=== PATIENT | female | born 1985 | race Caucasian/White ===

== ENCOUNTER 2024-05-27 11:10 | Outpatient (CLI) | payer OTHER, SELFPAY | END 2024-05-27 11:11 | disposition home or self-care (01) | PROVIDERS: PCP Emergency Medicine; Visit Provider Emergency Medicine | DX: E78.49 Other hyperlipidemia (principal); Z13.228 Encounter for screening for other metabolic disorders | CPT/HCPCS: 80053; 80061 ==

== ENCOUNTER 2024-07-01 09:19 | Outpatient (CLI) | payer OTHER, SELFPAY | END 2024-07-01 09:20 | disposition home or self-care (01) | PROVIDERS: PCP Emergency Medicine; Visit Provider Emergency Medicine | DX: R63.5 Abnormal weight gain (principal); E78.5 Hyperlipidemia, unspecified | CPT/HCPCS: 84443; 87624; 87625; 88141; 88142 ==

== ENCOUNTER 2024-07-22 09:54 | Outpatient (CLI) | payer OTHER, SELFPAY ==
[2024-07-24 14:47] LABS: HPV Source Cervix; HPV, High Risk by TMA Not Detected
== END 2024-07-22 09:55 | disposition home or self-care (01) ==
PROVIDERS: PCP Emergency Medicine; Visit Provider Obstetrics & Gynecology
DX: Z12.4 Encounter for screening for malignant neoplasm of cervix (principal); Z11.51 Encounter for screening for human papillomavirus (HPV)
CPT/HCPCS: 87624; 87625; 88141; 88142

== ENCOUNTER 2025-09-03 10:58 | Outpatient (CLI) | payer BC, SELFPAY | END 2025-09-03 10:59 | disposition home or self-care (01) | PROVIDERS: PCP Physician Assistant Medical; Visit Provider Physician Assistant Medical | DX: Z00.00 Encounter for general adult medical examination without abnormal findings (principal); Z11.3 Encounter for screening for infections with a predominantly sexual mode of transmission | CPT/HCPCS: 80053; 86703; 86706; 86780; 86803; 87340 ==

== ENCOUNTER 2025-09-14 07:16 | Outpatient (CLI) | payer BC, SELFPAY ==
--- NOTE | 2025-09-14 08:18 | P.ANES_ITS ---
Anesthesia Charges Start Date/Time Anesthesia Start Date: 09/14/25 Anesthesia Start Time: 07:54 Stop Date/Time Anesthesia Stop Date: 09/14/25 Anesthesia Stop Time: 08:15 Coding CPT Codes CPT Codes: ANES UPR GI NDSC PX NOS - 99303 ([id number]) P3 - PATIENT W/SEVERE SYS DISEASE, QX - GAS REVERSER SVC W/ MD MED DIRECTION, QK - CANCELING AND CUTTING CONTROL CLERK 2-4 CNCRNT ANES PROC
--- NOTE | 2025-09-14 08:18 | W.ANESCHARGE ---
Anesthesia Charges Start Date/Time Anesthesia Start Date: 09/14/25 Anesthesia Start Time: 07:54 Stop Date/Time Anesthesia Stop Date: 09/14/25 Anesthesia Stop Time: 08:15 Coding CPT Codes CPT Codes: ANES UPR GI NDSC PX NOS - 59858 ([id number]) P3 - PATIENT W/SEVERE SYS DISEASE, QX - ENVIRONMENTAL WEB CRAWLER SVC W/ MD MED DIRECTION, QK - CLERICAL ADJUSTER 2-4 CNCRNT ANES PROC
--- NOTE | 2025-09-14 09:27 | P.ANES_ITS ---
Anesthesia Charges Start Date/Time Anesthesia Start Date: 09/14/25 Anesthesia Start Time: 07:54 Stop Date/Time Anesthesia Stop Date: 09/14/25 Anesthesia Stop Time: 08:15 Coding CPT Codes CPT Codes: ANES UPR GI NDSC PX NOS - 72646 ([id number]) QK - GRADES 7 8 TUTOR 2-4 CNCRNT ANES PROC, QX - FOOD INSPECTOR SVC W/ MD MED DIRECTION, P3 - PATIENT W/SEVERE SYS DISEASE
--- NOTE | 2025-09-14 09:27 | W.ANESCHARGE ---
Anesthesia Charges Start Date/Time Anesthesia Start Date: 09/14/25 Anesthesia Start Time: 07:54 Stop Date/Time Anesthesia Stop Date: 09/14/25 Anesthesia Stop Time: 08:15 Coding CPT Codes CPT Codes: ANES UPR GI NDSC PX NOS - 11825 ([id number]) QK - ICE HOUSE SUPERVISOR 2-4 CNCRNT ANES PROC, QX - ROCKET MOTOR TESTER SVC W/ MD MED DIRECTION, P3 - PATIENT W/SEVERE SYS DISEASE
== END 2025-09-14 07:17 | disposition home or self-care (01) ==
PROVIDERS: PCP Physician Assistant Medical; Visit Provider Surgery
DX: R13.10 Dysphagia, unspecified (principal)
CPT/HCPCS: 00731; 43239; J2704; J3490